=== PATIENT | female | born 1990 | race Caucasian/White ===

== ENCOUNTER 2017-01-22 13:25 | Emergency (ER) | payer MEDICAID, OTHER ==
[2017-01-22] MEDS ORDERED: Sodium Chloride 0.9% 10 ML Syringe FLUSH PRN (13:41)
[2017-01-22] MEDS ORDERED: Sodium Chloride 0.9% 2.5 ML Syringe FLUSH PRN (13:41)
--- NOTE | 2017-01-22 14:02 | EDM.PDOC ---
ED HPI GENERAL MEDICAL PROBLEM - General Chief Complaint: Abdominal Pain Stated Complaint: ABDOMINAL PAIN Time Seen by Provider: 01/22/17 13:30 - History of Present Illness INITIAL COMMENTS - FREE TEXT/NARRATIVE: HISTORY AND PHYSICAL: History of present illness: The patient is a 26 y/0 female with a history of a recent total abdominal hysterectomy performed 2 weeks ago at the [facility] for ovarian cancer and she is scheduled for chemotherapy in another 4 weeks in [place]. The patient states that she is on pain medication and has had intermittent abdominal pain since the surgery. The patient has not had vomiting but has been nauseated since the surgery and is using Zofran. She has not had a fever flank pain or urinary complaints. Patient says she is here today because she feels that the pain is worse and she is now feeling a lump in the midline in her incision which she did not notice before. She says the pain that is more sharp originates from this and then radiates outward. Review of systems: As per history of present illness and below otherwise all systems reviewed and negative. Past medical history: As per history of present illness and as reviewed below otherwise noncontributory. Surgical history: As per history of present illness and as reviewed below otherwise noncontributory. Social history: No reported history of drug or alcohol abuse. Family history: As per history of present illness and as reviewed below otherwise noncontributory. Physical exam: Gen.: Well-developed well-nourished female who is nontoxic and vital signs reviewed by me HEENT: Atraumatic, normocephalic, negative for conjunctival pallor or scleral icterus, mucous membranes moist, throat clear, neck supple, nontender, trachea midline. Lungs: Clear to auscultation, breath sounds equal bilaterally, chest nontender. Heart: S1S2, regular rate and rhythm no overt murmurs Abdomen: Soft, nondistended, nontender. Midline incision is well-healed and there is a palpable firm area approximately the size of an almond in the inferior aspect which has some tenderness but no fluctuance. There is no erythema in the surround and the bowel sounds are slightly hypoactive. There is no diffuse tenderness on palpation no rebound or guarding. Most of the tenderness that is appreciated on my exam is localized to this area in her scar tissue. Negative for masses or hepatosplenomegaly. Negative for costovertebral tenderness. Pelvis: Stable nontender. Genitourinary: Deferred. Rectal: Deferred. Extremities: Atraumatic, negative for cords or calf pain. Neurovascular unremarkable. Neuro: Awake, alert, oriented. Cranial nerves II through XII unremarkable. Cerebellum unremarkable. Motor and sensory unremarkable throughout. Exam nonfocal. Diagnostics: CBC CMP CT scan of the abdomen and pelvis Therapeutics: I will offer the patient Toradol--nursing said that she declined that. I discussed with the patient all testing care results and I will give her a disc of her CAT scan as she is scheduled to follow-up with her surgeon in one week. There is nothing concerning that needs emergent admission or surgical intervention. I've advised her to continue with her care Plan at home with pain management and to increase fluids and fiber in her diet. Advised on reasons to return. Impression: Incisional pain status post total abdominal hysterectomy Definitive disposition and diagnosis as appropriate pending reevaluation and review of above. Middle Abdominal Pain Score (Numeric/FACES): 7 - Related Data Allergies Allergy/AdvReac Type Severity Reaction Status Date / Time No Known Allergies Allergy Verified 01/22/17 13:29 Home Meds: Home Meds Acetaminophen [Tylenol] 01/22/17 [History] Docusate Sodium [Stool Softener] 01/22/17 [History] Ibuprofen 01/22/17 [History] Ondansetron [Zofran ODT] 01/22/17 [History] oxyCODONE HCl [Oxycontin] 1 tab PO ASDIRECTED PRN 01/22/17 [History] Past Medical History - Past Health History Medical/Surgical History: Denies Medical/Surgical History HEENT History: Reports: None Cardiovascular History: Reports: None Respiratory History: Reports: None Genitourinary History: Reports: None 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 (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 Below) Other OB/BYN History: ovarian tumor Psychiatric History: Reports: None Dermatologic History: Reports: None - Infectious Disease History Infectious Disease History: Reports: Chicken Pox - Past Surgical History HEENT Surgical History: Reports: None GI Surgical History: Reports: Appendectomy Female Surgical History: Reports: Hysterectomy, Oophorectomy Social & Family History - Family History Oncologic: Reports: Cervix, Ovarian, Other (See Below) Other Oncologic Family History: stomach - Tobacco Use Smoking Status *Q: Never Smoker Years of Tobacco use: 2 Second Hand Smoke Exposure: No - Alcohol Use Days Per Week of Alcohol Use: 1 Number of Drinks Per Day: 6 Total Drinks Per Week: 6 - Recreational Drug Use Recreational Drug Use: No ED ROS GENERAL - Review of Systems Review Of Systems: ROS reveals no pertinent complaints other than HPI. ED EXAM, GENERAL - Physical Exam Exam: See Below (See dictation) Course - Vital Signs Last Recorded V/S: Last Vital Signs Temp 36.3 C 01/22/17 13:29 Pulse 63 01/22/17 13:29 Resp 18 01/22/17 13:29 BP 115/71 01/22/17 13:29 Pulse Ox 98 01/22/17 13:29 - Orders/Labs/Meds Orders: Active Orders 24 hr Category Date Time Status Sodium Chloride 0.9% [Saline Flush] Med 01/22/17 13:41 Active 10 ml FLUSH ASDIRECTED PRN Sodium Chloride 0.9% [Saline Flush] Med 01/22/17 13:41 Active 2.5 ml FLUSH ASDIRECTED PRN Saline Lock Insert [OM.PC] Stat Oth 01/22/17 13:40 Ordered Medication Orders Sodium Chloride (Saline Flush) 10 ml FLUSH ASDIRECTED PRN PRN Reason: Keep Vein Open Last Admin: 01/22/17 13:56 Dose: 10 ml Sodium Chloride (Saline Flush) 2.5 ml FLUSH ASDIRECTED PRN PRN Reason: Keep Vein Open Last Admin: 01/22/17 13:56 Dose: 2.5 ml Labs: Laboratory Tests 01/22/17 01/22/17 Range/Units 13:54 13:54 WBC 7.73 (4.0-11.0) K/uL RBC 4.20 L (4.30-5.90) M/uL Hgb 12.5 (12.0-16.0) g/dL Hct 38.5 (36.0-46.0) % MCV 91.7 (80.0-98.0) fL MCH 29.8 (27.0-32.0) pg MCHC 32.5 (31.0-37.0) g/dL RDW Std Deviation 46.3 (28.0-62.0) fl RDW Coeff of Geovany 14 (11.0-15.0) % Plt Count 297 (150-400) K/uL MPV 9.30 (7.40-12.00) fL Neut % (Auto) 66.6 (48.0-80.0) % Lymph % (Auto) 23.3 (16.0-40.0) % [place] % (Auto) 6.6 (0.0-15.0) % Eos % (Auto) 3.2 (0.0-7.0) % Baso % (Auto) 0.3 (0.0-1.5) % Neut # (Auto) 5.2 (1.4-5.7) K/uL Lymph # (Auto) 1.8 (0.6-2.4) K/uL [place] # (Auto) 0.5 (0.0-0.8) K/uL Eos # (Auto) 0.3 (0.0-0.7) K/uL Baso # (Auto) 0.0 (0.0-0.1) K/uL Nucleated RBC % 0.0 /100WBC Nucleated RBCs # 0 K/uL Sodium 141 (136-146) mmol/L Potassium 3.6 (3.5-5.1) mmol/L Chloride 109 (98-110) mmol/L Carbon Dioxide 25 (21-31) mmol/L BUN 14 (6.0-23.0) mg/dL Creatinine 0.8 (0.6-1.5) mg/dL Est Cr Clr Drug Dosing 103.63 mL/min Estimated GFR (MDRD) > 60.0 ml/min Glucose 118 H (60-110) mg/dL Calcium 9.0 (8.8-10.8) mg/dL Total Bilirubin 0.3 (0.1-1.5) mg/dL AST 15 (5-40) IU/L ALT 18 (8-54) IU/L Alkaline Phosphatase 85 (40-150) Total Protein 6.8 (6.0-8.0) g/dL Albumin 3.7 (3.5-5.0) g/dL Globulin 3.1 (2.0-3.5) g/dL Albumin/Globulin Ratio 1.2 L (1.3-2.8) Meds: Medications Generic Name Dose Route Start Last Admin Trade Name Freq PRN Reason Stop Dose Admin Sodium Chloride 10 ml 01/22/17 13:41 01/22/17 13:56 Saline Flush FLUSH 10 ml ASDIRECTED PRN Administration Keep Vein Open Sodium Chloride 2.5 ml 01/22/17 13:41 01/22/17 13:56 Saline Flush FLUSH 2.5 ml ASDIRECTED PRN Administration Keep Vein Open Discontinued Medications Generic Name Dose Route Start Last Admin Trade Name Freq PRN Reason Stop Dose Admin Iopamidol 100 ml 01/22/17 15:00 01/22/17 15:03 Isovue Multipack-370 (76%) IVPUSH 01/22/17 15:01 100 ml ONETIME STA Administration Departure - Departure Time of Disposition: 15:41 Disposition: Home, Self-Care 01 Condition: Good Clinical Impression: Pain at surgical incision - Discharge Information Forms: ED Department Discharge Additional Instructions: The following information is given to patients seen in the emergency department who are being discharged to home. This information is to outline your options for follow-up care. We provide all patients seen in our emergency department with a follow-up referral. The need for follow-up, as well as the timing and circumstances, are variable depending upon the specifics of your emergency department visit. If you don't have a primary care physician on staff, we will provide you with a referral. We always advise you to contact your personal physician following an emergency department visit to inform them of the circumstance of the visit and for follow-up with them and/or the need for any referrals to a consulting specialist. The emergency department will also refer you to a specialist when appropriate. This referral assures that you have the opportunity for followup care with a specialist. All of these measure are taken in an effort to provide you with optimal care, which includes your followup. Under all circumstances we always encourage you to contact your private physician who remains a resource for coordinating your care. When calling for followup care, please make the office aware that this follow-up is from your recent emergency room visit. If for any reason you are refused follow-up, please contact the [facility] emergency department at and ask to speak to the emergency department charge nurse. [facility] Primary care- Internal Medicine and Family [address] [address] Please keep all your scheduled appointments especially along with her surgeon in one week. Bring the disc of your CAT scan performed today to that appointment. Use the pain medications you have at home for discomfort and return to ER as needed and as discussed - My Orders Last 24 Hours: My Active Orders 01/22/17 13:40 Saline Lock Insert [OM.PC] Stat 01/22/17 13:41 Sodium Chloride 0.9% [Saline Flush] 10 ml FLUSH ASDIRECTED PRN Sodium Chloride 0.9% [Saline Flush] 2.5 ml FLUSH ASDIRECTED PRN - Assessment/Plan Last 24 Hours: My Active Orders 01/22/17 13:40 Saline Lock Insert [OM.PC] Stat 01/22/17 13:41 Sodium Chloride 0.9% [Saline Flush] 10 ml FLUSH ASDIRECTED PRN Sodium Chloride 0.9% [Saline Flush] 2.5 ml FLUSH ASDIRECTED PRN
[2017-01-22 14:30] LABS: CHLORIDE,CL 109 mmol/L (98-110); SODIUM,NA 141 mmol/L (136-146)
[2017-01-22] MEDS ORDERED: Iopamidol 755 MG/ML 500 ML Multipack Bottle IVPUSH STA (15:00)
--- NOTE | 2017-01-22 15:16 | CT ---
CT of the abdomen and pelvis with contrast. HISTORY: Pain TECHNIQUE: Axial CT images were obtained of the abdomen and pelvis following administration of 100 m L of Isovue-370 in the right antecubital fossa without complication. Coronal and sagittal reconstruc tions obtained. FINDINGS: The lung bases are clear, no pleural effusion. There are healing posterior left T11 and T12 rib frac tures. There is mild focal fatty infiltration near the falciform ligament, otherwise the liver appears norm al. The spleen, adrenal glands, and pancreas appear normal. The gallbladder is minimally filled. No bulky retroperitoneal lymphadenopathy or abdominal ascites. The kidneys enhance and function symmetrically without evidence of obstructive uropathy. Small renal cortical cysts are noted bilaterally. The large and small bowel are normal in caliber without evidence of obstruction. Appendectomy. There is no bulky retroperitoneal lymphadenopathy. The urinary bladder is normal. There is a small 2.4 x 1.4 x 2 cm collection within the pelvis just adjacent to the vaginal cuff. Likely post surgical nolasco ges secondary to recent hysterectomy. No free air noted. Urinary bladder appears normal. Postsurgical changes are noted secondary to a midline laparotomy incision. There is no definite jasmina ia demonstrated. There is mild adjacent stranding. There is a small 1.2 x 0.8 cm collection within t he lower aspect of the incision. No suspicious osseous abnormalities identified. IMPRESSION: 1. Postsurgical changes noted secondary to recent hysterectomy and laparotomy. There is a tiny 1.2 c m collection along the inferior aspect of the incision margin. There is also a 2.4 x 1.4 cm intrapel odalys collection near the vaginal cuff. There is no increased adjacent stranding to suggest an abscess , this is likely a small postoperative hematoma versus seroma. 2. No abdominal hernia identified. 3. Healing subacute posterior left 11th and 12th rib fractures.
[2017-01-22 15:57] VITALS: BP 109/52
== END 2017-01-22 16:00 | disposition home or self-care (01) ==
LOC: MW.ED 13:25
DX: G89.18 Other acute postprocedural pain (principal); R10.9 Unspecified abdominal pain; Z90.49 Acquired absence of other specified parts of digestive tract; Z90.710 Acquired absence of both cervix and uterus
CPT/HCPCS: 36415; 74177; 80053; 85025; 99284; Q9967; 99283

== ENCOUNTER 2017-02-06 10:26 | Emergency (ER) | payer BC, MEDICAID, OTHER ==
[2017-02-06] MEDS ORDERED: Sodium Chloride 0.9% 1,000 ML IV ONE (10:53)
[2017-02-06] MEDS ORDERED: Sodium Chloride 0.9% 10 ML Syringe FLUSH PRN (10:53)
[2017-02-06] MEDS ORDERED: Sodium Chloride 0.9% 2.5 ML Syringe FLUSH PRN (10:53)
[2017-02-06] MEDS ORDERED: Ondansetron 4 MG/2 ML SDV IVPUSH ONE (10:53)
[2017-02-06] MEDS ORDERED: Morphine 10 MG/ML Syringe IV ONE (11:15)
[2017-02-06] MEDS ORDERED: Morphine 2 MG/ML Syringe IVPUSH ONE (11:30)
--- NOTE | 2017-02-06 11:34 | EDM.PDOC ---
<Wan Wiggins - Last Filed: 02/06/17 12:27> ED HPI GENERAL MEDICAL PROBLEM - General Chief Complaint: General Stated Complaint: PT WOULD LIKE TO BE SEEN Time Seen by Provider: 02/06/17 10:27 - History of Present Illness INITIAL COMMENTS - FREE TEXT/NARRATIVE: Seen and examined the patient Patient did present for IV fluids at the request of her surgeon in [facility]. She has a history of ovarian cancer as stated diagnosed 3-4 months prior she has since had surgery and myomectomy with for the primary procedure and is subsequently followed and male. She has follow-up scheduled with both providers daniel bran coming up in 10-14 days. I agree with physical exam Skin/abdominal exam surgical wound is clean dry and intact is a small area where she did have drainage performed last week this has packing in place she is tender surrounding however no redness warmth or exudate for drainage There is no pain on deep palpation right and left lower quadrant bowel sounds are present throughout no guarding or rebound although as stated there is moderate tenderness surrounding the drainage site this is superficial CT of the abdomen pelvis was performed last week and results are on electronic file Assessment Ovarian cancer Multiple debulking procedures performed [facility], primary procedure at [place] Wound is clean dry intact Plan 1 L normal saline bolus provided Medications provided by resident above Follow-up with primary surgeon in [place] as scheduled sooner as needed Continue follow-up with male clinics as scheduled as well Return if symptoms persist or worsen - Related Data Allergies Allergy/AdvReac Type Severity Reaction Status Date / Time No Known Allergies Allergy Verified 01/22/17 13:29 Home Meds: Home Meds Acetaminophen [Tylenol] 01/22/17 [History] Docusate Sodium [Stool Softener] 01/22/17 [History] Ibuprofen 01/22/17 [History] Ondansetron [Zofran ODT] 01/22/17 [History] oxyCODONE HCl [Oxycontin] 1 tab PO ASDIRECTED PRN 01/22/17 [History] ED ROS GENERAL - Review of Systems Review Of Systems: ROS reveals no pertinent complaints other than HPI. ED EXAM, GENERAL - Physical Exam Exam: See Below Course - Vital Signs Last Recorded V/S: Last Vital Signs Temp 36.8 C 02/06/17 10:51 Pulse 69 02/06/17 13:17 Resp 16 02/06/17 13:17 BP 103/66 02/06/17 13:17 Pulse Ox 100 02/06/17 13:17 - Orders/Labs/Meds Labs: Laboratory Tests 02/06/17 02/06/17 02/06/17 Range/Units 11:02 11:02 11:02 WBC 6.53 (4.0-11.0) K/uL RBC 4.40 (4.30-5.90) M/uL Hgb 13.3 (12.0-16.0) g/dL Hct 40.1 (36.0-46.0) % MCV 91.1 (80.0-98.0) fL MCH 30.2 (27.0-32.0) pg MCHC 33.2 (31.0-37.0) g/dL RDW Std Deviation 45.6 (28.0-62.0) fl RDW Coeff of Geovany 14 (11.0-15.0) % Plt Count 294 (150-400) K/uL MPV 9.60 (7.40-12.00) fL Neut % (Auto) 50.9 (48.0-80.0) % Lymph % (Auto) 35.2 (16.0-40.0) % [place] % (Auto) 10.4 (0.0-15.0) % Eos % (Auto) 3.2 (0.0-7.0) % Baso % (Auto) 0.3 (0.0-1.5) % Neut # (Auto) 3.3 (1.4-5.7) K/uL Lymph # (Auto) 2.3 (0.6-2.4) K/uL [place] # (Auto) 0.7 (0.0-0.8) K/uL Eos # (Auto) 0.2 (0.0-0.7) K/uL Baso # (Auto) 0.0 (0.0-0.1) K/uL Nucleated RBC % 0.0 /100WBC Nucleated RBCs # 0 K/uL Lactate 0.9 (0.20-2.00) mmol/L Sodium 139 (136-146) mmol/L Potassium 4.1 (3.5-5.1) mmol/L Chloride 107 (98-110) mmol/L Carbon Dioxide 23 (21-31) mmol/L BUN 13 (6.0-23.0) mg/dL Creatinine 0.8 (0.6-1.5) mg/dL Est Cr Clr Drug Dosing 103.63 mL/min Estimated GFR (MDRD) > 60.0 ml/min Glucose 86 (60-110) mg/dL Calcium 9.4 (8.8-10.8) mg/dL Total Bilirubin 0.3 (0.1-1.5) mg/dL AST 19 (5-40) IU/L ALT 19 (8-54) IU/L Alkaline Phosphatase 77 (40-150) Total Protein 7.2 (6.0-8.0) g/dL Albumin 3.9 (3.5-5.0) g/dL Globulin 3.3 (2.0-3.5) g/dL Albumin/Globulin Ratio 1.2 L (1.3-2.8) Urine Color Urine Appearance Urine pH (5.0-8.0) Ur Specific [place] (1.001-1.035) Urine Protein (NEGATIVE) mg/dL Urine Glucose (UA) (NEGATIVE) mg/dL Urine Ketones (NEGATIVE) mg/dL Urine Occult Blood (NEGATIVE) Urine Nitrite (NEGATIVE) Urine Bilirubin (NEGATIVE) Urine Urobilinogen (<2.0) EU/dL Ur Leukocyte Esterase (NEGATIVE) Urine RBC (0-2/HPF) Urine WBC (0-5/HPF) Ur Epithelial Cells (NONE-FEW) Amorphous Sediment (NEGATIVE) Urine Bacteria (NEGATIVE) 02/06/17 Range/Units 12:30 WBC (4.0-11.0) K/uL RBC (4.30-5.90) M/uL Hgb (12.0-16.0) g/dL Hct (36.0-46.0) % MCV (80.0-98.0) fL MCH (27.0-32.0) pg MCHC (31.0-37.0) g/dL RDW Std Deviation (28.0-62.0) fl RDW Coeff of Geovany (11.0-15.0) % Plt Count (150-400) K/uL MPV (7.40-12.00) fL Neut % (Auto) (48.0-80.0) % Lymph % (Auto) (16.0-40.0) % [place] % (Auto) (0.0-15.0) % Eos % (Auto) (0.0-7.0) % Baso % (Auto) (0.0-1.5) % Neut # (Auto) (1.4-5.7) K/uL Lymph # (Auto) (0.6-2.4) K/uL [place] # (Auto) (0.0-0.8) K/uL Eos # (Auto) (0.0-0.7) K/uL Baso # (Auto) (0.0-0.1) K/uL Nucleated RBC % /100WBC Nucleated RBCs # K/uL Lactate (0.20-2.00) mmol/L Sodium (136-146) mmol/L Potassium (3.5-5.1) mmol/L Chloride (98-110) mmol/L Carbon Dioxide (21-31) mmol/L BUN (6.0-23.0) mg/dL Creatinine (0.6-1.5) mg/dL Est Cr Clr Drug Dosing mL/min Estimated GFR (MDRD) ml/min Glucose (60-110) mg/dL Calcium (8.8-10.8) mg/dL Total Bilirubin (0.1-1.5) mg/dL AST (5-40) IU/L ALT (8-54) IU/L Alkaline Phosphatase (40-150) Total Protein (6.0-8.0) g/dL Albumin (3.5-5.0) g/dL Globulin (2.0-3.5) g/dL Albumin/Globulin Ratio (1.3-2.8) Urine Color YELLOW Urine Appearance SLT CLOUDY Urine pH 6.0 (5.0-8.0) Ur Specific [place] 1.015 (1.001-1.035) Urine Protein NEGATIVE (NEGATIVE) mg/dL Urine Glucose (UA) NEGATIVE (NEGATIVE) mg/dL Urine Ketones NEGATIVE (NEGATIVE) mg/dL Urine Occult Blood LARGE H (NEGATIVE) Urine Nitrite NEGATIVE (NEGATIVE) Urine Bilirubin NEGATIVE (NEGATIVE) Urine Urobilinogen 0.2 (<2.0) EU/dL Ur Leukocyte Esterase SMALL (NEGATIVE) Urine RBC 50-70 (0-2/HPF) Urine WBC 12-15 (0-5/HPF) Ur Epithelial Cells FEW (NONE-FEW) Amorphous Sediment RARE (NEGATIVE) Urine Bacteria FEW (NEGATIVE) Meds: Medications Discontinued Medications Generic Name Dose Route Start Last Admin Trade Name Jose Angel PRN Reason Stop Dose Admin Sodium Chloride 1,000 mls @ 999 mls/hr 02/06/17 10:53 02/06/17 11:09 Normal Saline IV 02/06/17 11:53 999 mls/hr STAT ONE Administration Morphine Sulfate 2 mg 02/06/17 11:15 02/06/17 11:39 Morphine IV 02/06/17 11:16 Not Given ONETIME ONE Morphine Sulfate 2 mg 02/06/17 11:30 02/06/17 11:39 Morphine IVPUSH 02/06/17 11:31 2 mg ONETIME ONE Administration Ondansetron HCl 4 mg 02/06/17 10:53 02/06/17 11:11 Zofran IVPUSH 02/06/17 10:54 4 mg ONETIME ONE Administration Sodium Chloride 10 ml 02/06/17 10:53 Saline Flush FLUSH ASDIRECTED PRN Keep Vein Open Sodium Chloride 2.5 ml 02/06/17 10:53 Saline Flush FLUSH ASDIRECTED PRN Keep Vein Open Departure - Departure Time of Disposition: 12:31 Disposition: Home, Self-Care 01 Condition: Good Clinical Impression: Visit for wound check Clinical Impression: (Ruled Out): Wound check, abscess - Discharge Information Instructions: Dehydration, Adult, [id number] Referrals: PCP,None [Primary Care Provider] - Forms: ED Department Discharge Additional Instructions: Continue current medications as prescribed Return if fever chills sweats should they develop [facility] as needed Continue follow-up with male clinics as scheduled as well Return if symptoms persist or worsen <Cb Saba - Last Filed: 02/09/17 09:15> ED HPI GENERAL MEDICAL PROBLEM - General Source of Information: Reports: Patient History Limitations: Reports: No Limitations - History of Present Illness INITIAL COMMENTS - FREE TEXT/NARRATIVE: HISTORY AND PHYSICAL: History of present illness: This is a 26-year-old female with a past history of ovarian cancer status post total abdominal hysterectomy who presents with a chief complaint of abdominal pain. She presented to our emergency department on January 23 with a similar complaint where a CT scan and workup was done and a diagnosis of postsurgical pain was made. The patient tells me that she began to form an abscess over the surgical site and she followed up with her surgeon at [place] who did incision and drainage last week. She tells me that her abdominal pain continues to be persistent in the same location. She also tells me she is experiencing, chills and nausea. She denies any chest pain, shortness of breath. Review of systems: As per history of present illness and below otherwise all systems reviewed and negative. Past medical history: As per history of present illness and as reviewed below otherwise noncontributory. Surgical history: As per history of present illness and as reviewed below otherwise noncontributory. Social history: No reported history of drug or alcohol abuse. Family history: As per history of present illness and as reviewed below otherwise noncontributory. Physical exam: HEENT: Atraumatic, normocephalic, pupils reactive, negative for conjunctival pallor or scleral icterus, mucous membranes moist, throat clear, neck supple, nontender, trachea midline. Lungs: Clear to auscultation, breath sounds equal bilaterally, chest nontender. Heart: S1S2, regular, negative for clicks, rubs, or JVD. Abdomen: Soft, nondistended, nontender. Negative for masses or hepatosplenomegaly. Negative for costovertebral tenderness. Postsurgical scar appears to be clean with no superficial signs of infection. Incision and drainage is currently packed with gauze. There does not appear to be any excessive drainage from the site. There is tenderness to palpation over the surgical scar. Pelvis: Stable nontender. Genitourinary: Deferred. Rectal: Deferred. Extremities: Atraumatic, negative for cords or calf pain. Neurovascular unremarkable. Neuro: Awake, alert, oriented. Cranial nerves II through XII unremarkable. Cerebellum unremarkable. Motor and sensory unremarkable throughout. Exam nonfocal. Diagnostics: CBC CMP and UA blood culture lactic acid Therapeutics: IV normal saline bolus, 4 mg IV Zofran, 2 mg IV morphine Impression: [] Plan: [] Definitive disposition and diagnosis as appropriate pending reevaluation and review of above. 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) Other OB/BYN History: ovarian tumor Psychiatric History: Reports: None Dermatologic History: Reports: None - Infectious Disease History Infectious Disease History: Reports: Chicken Pox - Past Surgical History HEENT Surgical History: Reports: None GI Surgical History: Reports: Appendectomy Female Surgical History: Reports: Hysterectomy, Oophorectomy Social & Family History - Family History Oncologic: Reports: Cervix, Ovarian, Other (See Below) Other Oncologic Family History: stomach - Tobacco Use Smoking Status *Q: Never Smoker Years of Tobacco use: 2 Second Hand Smoke Exposure: No - Alcohol Use Days Per Week of Alcohol Use: 1 Number of Drinks Per Day: 6 Total Drinks Per Week: 6 - Recreational Drug Use Recreational Drug Use: No ED ROS GENERAL - Review of Systems Review Of Systems: See Below (see dictation) ED EXAM, GENERAL - Physical Exam Exam: See Below (see dictation) Departure - Departure Condition: Good
[2017-02-06 12:30] LABS: CHLORIDE,CL 107 mmol/L (98-110); SODIUM,NA 139 mmol/L (136-146)
[2017-02-06 13:23] VITALS: BP 103/66
== END 2017-02-06 13:17 | disposition home or self-care (01) ==
LOC: MW.ED 10:26
DX: Z48.816 Encounter for surgical aftercare following surgery on the genitourinary system (principal); Z85.43 Personal history of malignant neoplasm of ovary; Z90.49 Acquired absence of other specified parts of digestive tract; Z90.710 Acquired absence of both cervix and uterus; Z90.721 Acquired absence of ovaries, unilateral
CPT/HCPCS: 36415; 80053; 81001; 83605; 85025; 87040; 96361; 96374; 96375; 99284; J2270; J2405; J7040; 99282

== ENCOUNTER 2017-02-27 08:17 | Emergency (ER) | payer MEDICAID, OTHER ==
--- NOTE | 2017-02-27 08:38 | EDM.PDOC ---
ED HPI GENERAL MEDICAL PROBLEM - General Chief Complaint: Abdominal Pain Stated Complaint: ABDOMINAL PAIN Time Seen by Provider: 02/27/17 08:32 - History of Present Illness INITIAL COMMENTS - FREE TEXT/NARRATIVE: HISTORY AND PHYSICAL: History of present illness: The patient is a 27-year-old female with a history of ovarian cancer who initially underwent surgery at [facility] in [place] and then had several surgeries subsequently at [facility]; she has been seen in this emergency department 2 prior times on January 22 and February 06 with the first of these visits by me where she was complaining of incisional pain and had just had a surgery 2 weeks prior at [facility]. At that visit the patient had tenderness and discomfort in her incision and a CAT scan was performed which revealed a small fluid collection in this area [facility]. She was advised to follow-up with her surgeon at [place] which she did and he performed an incision and drainage subsequently and the patient was seen on February 06 after that procedure urine R ER. On that visit she was concerned about the wound and wanted a recheck. On my initial visit with her the beginning of January she was posted begin chemotherapy in [place]. She says that she never started chemotherapy in [place] and she has had no chemotherapy at this point. She identifies with Dr. Rizo, a surgeon at [facility], as her primary physician and I asked her about the oncologist contacted me contacted and she says that she has not started working with him. She seems To be very indifferent about follow-up and her care and when asked about following up at the [facility] he says that she is only going to be going there if she needs to have more surgery. The patient agrees with me that she has had this same pelvic pain since her surgery and there is nothing new or different about it and she says that over the last few weeks she has stopped taking her pain medication because it constipates her and she is trying to "deal with the pain" without the medications. She tells me that today the pain is still there and it is not different or changed but she has had some nausea some vomiting and is not having diarrhea and is in fact having harder stools. She's taking stool softeners to try to help with that. She has no urinary complaints no flank pain no chest pain or shortness of breath and says that she may have had a fever several days ago is currently not having a fever. Obtaining history or straight answers from this patient is somewhat challenging as she does not elaborate much on the questions and only simply answers. She feels that her incision is still somewhat heaped up and she says that when she moves certain ways she feels like it is ripping. When she was triaged she told the nurse initially that she was specifically here for a CAT scan.: Well-developed well-nourished female who is nontoxic and vital signs of been reviewed by me. She moves easily in the ED without any distress. Dr Means at [facility] is Dr Gaona but goes by the shorter name Please note that I was contacted yesterday by the oncologist, Dr. Means, at [facility] and [place] as this patient had contacted him and was concerned about her abdominal pain. He told me that she has not completely connected with them for treatment and she has not started treatment with them and he told her that if he was having pain that she should be seen in the emergency department for testing and imaging as indicated. Review of systems: As per history of present illness and below otherwise all systems reviewed and negative. Past medical history: As per history of present illness and as reviewed below otherwise noncontributory. Surgical history: As per history of present illness and as reviewed below otherwise noncontributory. Social history: No reported history of drug or alcohol abuse. Family history: As per history of present illness and as reviewed below otherwise noncontributory. Physical exam: HEENT: Atraumatic, normocephalic, pupils reactive, negative for conjunctival pallor or scleral icterus, mucous membranes moist, throat clear, neck supple, nontender, trachea midline. Lungs: Clear to auscultation, breath sounds equal bilaterally, chest nontender. Heart: S1S2, regular rate and rhythm no overt murmurs Abdomen: Soft, nondistended, nontender On deep palpation throughout the abdomen.she has a well-healed midline incision without any evidence of any hernial defects but there is some heaping up of the tissue in the inferior aspect which causes her some discomfort but there is no fluctuance. Negative for masses or hepatosplenomegaly. Negative for costovertebral tenderness. Pelvis: Stable nontender. Genitourinary: Deferred. Rectal: Deferred. Extremities: Atraumatic, negative for cords or calf pain. Neurovascular unremarkable. Neuro: Awake, alert, oriented. Cranial nerves II through XII unremarkable. Cerebellum unremarkable. Motor and sensory unremarkable throughout. Exam nonfocal. Diagnostics: CBC CMP lactic acid UA CT scan of the abdomen and pelvis Therapeutics: Toradol Zofran I discussed the CT scan and lab findings with the oncologist at [place], Dr. Gaona; I will push the CT films to their institution so that he can review them. He said that he will discuss this case with Dr. Stover as well. He said that the recommendation from [facility] was no chemotherapy at this time and just close follow-up. I've explained this to the patient.. I will offer a prescription of tramadol which might be less constipating for the patient and advise her that Dr. Means's office will be calling her about follow-up Impression: Abdominal pain etiology unclear with history of ovarian cancer with resection stable Definitive disposition and diagnosis as appropriate pending reevaluation and review of above. Pelvic Pain Score (Numeric/FACES): 7 - Related Data Allergies Allergy/AdvReac Type Severity Reaction Status Date / Time No Known Allergies Allergy Verified 01/22/17 13:29 Home Meds: Home Meds Acetaminophen [Tylenol] 01/22/17 [History] Docusate Sodium [Stool Softener] 01/22/17 [History] Ibuprofen 01/22/17 [History] Ondansetron [Zofran ODT] 01/22/17 [History] oxyCODONE HCl [Oxycontin] 1 tab PO ASDIRECTED PRN 01/22/17 [History] Past Medical History - Past Health History Medical/Surgical History: Denies Medical/Surgical History HEENT History: Reports: None Cardiovascular History: Reports: None Respiratory History: Reports: None Genitourinary History: Reports: None SUPERINTENDENT TRANSMISSION History: Reports: Other (See Below) Other OB/BYN History: ovarian tumor Psychiatric History: Reports: None Dermatologic History: Reports: None - Infectious Disease History Infectious Disease History: Reports: Chicken Pox - Past Surgical History HEENT Surgical History: Reports: None GI Surgical History: Reports: Appendectomy Female Surgical History: Reports: Hysterectomy, Oophorectomy Social & Family History - Family History Family Medical History: Noncontributory Oncologic: Reports: Cervix, Ovarian, Other (See Below) Other Oncologic Family History: stomach - Tobacco Use Smoking Status *Q: Never Smoker Years of Tobacco use: 2 Second Hand Smoke Exposure: No - Caffeine Use Caffeine Use: Reports: None - Alcohol Use Days Per Week of Alcohol Use: 1 Number of Drinks Per Day: 6 Total Drinks Per Week: 6 - Recreational Drug Use Recreational Drug Use: No ED ROS GENERAL - Review of Systems Review Of Systems: ROS reveals no pertinent complaints other than HPI. ED EXAM, GENERAL - Physical Exam Exam: See Below (See dictation) Course - Vital Signs Last Recorded V/S: Last Vital Signs Temp 36.4 C 02/27/17 08:30 Pulse 51 L 02/27/17 08:30 Resp 18 02/27/17 08:30 BP 114/72 02/27/17 08:30 Pulse Ox 100 02/27/17 08:30 - Orders/Labs/Meds Orders: Active Orders 24 hr Category Date Time Status UA W/MICROSCOPIC [URIN] Stat Lab 02/27/17 08:47 Ordered Sodium Chloride 0.9% [Saline Flush] Med 02/27/17 08:47 Active 10 ml FLUSH ASDIRECTED PRN Sodium Chloride 0.9% [Saline Flush] Med 02/27/17 08:47 Active 2.5 ml FLUSH ASDIRECTED PRN Saline Lock Insert [OM.PC] Stat Oth 02/27/17 08:47 Ordered Medication Orders Sodium Chloride (Saline Flush) 10 ml FLUSH ASDIRECTED PRN PRN Reason: Keep Vein Open Last Admin: 02/27/17 09:06 Dose: 10 ml Sodium Chloride (Saline Flush) 2.5 ml FLUSH ASDIRECTED PRN PRN Reason: Keep Vein Open Last Admin: 02/27/17 09:06 Dose: 2.5 ml Labs: Laboratory Tests 02/27/17 02/27/17 02/27/17 Range/Units 08:58 08:58 08:58 WBC 7.26 (4.0-11.0) K/uL RBC 4.44 (4.30-5.90) M/uL Hgb 13.5 (12.0-16.0) g/dL Hct 40.6 (36.0-46.0) % MCV 91.4 (80.0-98.0) fL MCH 30.4 (27.0-32.0) pg MCHC 33.3 (31.0-37.0) g/dL RDW Std Deviation 44.9 (28.0-62.0) fl RDW Coeff of Geovany 14 (11.0-15.0) % Plt Count 285 (150-400) K/uL MPV 9.30 (7.40-12.00) fL Neut % (Auto) 61.1 (48.0-80.0) % Lymph % (Auto) 28.4 (16.0-40.0) % Mcdonald % (Auto) 8.0 (0.0-15.0) % Eos % (Auto) 1.8 (0.0-7.0) % Baso % (Auto) 0.7 (0.0-1.5) % Neut # (Auto) 4.4 (1.4-5.7) K/uL Lymph # (Auto) 2.1 (0.6-2.4) K/uL Mcdonald # (Auto) 0.6 (0.0-0.8) K/uL Eos # (Auto) 0.1 (0.0-0.7) K/uL Baso # (Auto) 0.1 (0.0-0.1) K/uL Nucleated RBC % 0.0 /100WBC Nucleated RBCs # 0 K/uL Lactate 0.8 (0.20-2.00) mmol/L Sodium 139 (136-146) mmol/L Potassium 3.8 (3.5-5.1) mmol/L Chloride 110 (98-110) mmol/L Carbon Dioxide 23 (21-31) mmol/L BUN 10 (6.0-23.0) mg/dL Creatinine 0.8 (0.6-1.5) mg/dL Est Cr Clr Drug Dosing 102.72 mL/min Estimated GFR (MDRD) > 60.0 ml/min Glucose 107 (60-110) mg/dL Calcium 8.7 L (8.8-10.8) mg/dL Total Bilirubin 0.4 (0.1-1.5) mg/dL AST 16 (5-40) IU/L ALT 19 (8-54) IU/L Alkaline Phosphatase 69 (40-150) Total Protein 6.7 (6.0-8.0) g/dL Albumin 3.8 (3.5-5.0) g/dL Globulin 2.9 (2.0-3.5) g/dL Albumin/Globulin Ratio 1.3 (1.3-2.8) Meds: Medications Generic Name Dose Route Start Last Admin Trade Name Jose Angel PRN Reason Stop Dose Admin Sodium Chloride 10 ml 02/27/17 08:47 02/27/17 09:06 Saline Flush FLUSH 10 ml ASDIRECTED PRN Administration Keep Vein Open Sodium Chloride 2.5 ml 02/27/17 08:47 02/27/17 09:06 Saline Flush FLUSH 2.5 ml ASDIRECTED PRN Administration Keep Vein Open Discontinued Medications Generic Name Dose Route Start Last Admin Trade Name Andreaq PRN Reason Stop Dose Admin Iopamidol 100 ml 02/27/17 09:49 02/27/17 09:50 Isovue Multipack-370 (76%) IVPUSH 02/27/17 09:50 100 ml ONETIME STA Administration Ketorolac Tromethamine 30 mg 02/27/17 08:47 02/27/17 09:05 Toradol IVPUSH 02/27/17 08:48 30 mg ONETIME ONE Administration Ondansetron HCl 4 mg 02/27/17 08:47 02/27/17 09:05 Zofran IVPUSH 02/27/17 08:48 4 mg ONETIME ONE Administration Departure - Departure Time of Disposition: 10:37 Disposition: Home, Self-Care 01 Condition: Good Clinical Impression: Abdominal pain Qualifiers: Abdominal location: lower abdomen, unspecified Qualified Code(s): R10.30 - Lower abdominal pain, unspecified - Discharge Information Referrals: PCP,None [Primary Care Provider] - Forms: ED Department Discharge Additional Instructions: The following information is given to patients seen in the emergency department who are being discharged to home. This information is to outline your options for follow-up care. We provide all patients seen in our emergency department with a follow-up referral. The need for follow-up, as well as the timing and circumstances, are variable depending upon the specifics of your emergency department visit. If you don't have a primary care physician on staff, we will provide you with a referral. We always advise you to contact your personal physician following an emergency department visit to inform them of the circumstance of the visit and for follow-up with them and/or the need for any referrals to a consulting specialist. The emergency department will also refer you to a specialist when appropriate. This referral assures that you have the opportunity for followup care with a specialist. All of these measure are taken in an effort to provide you with optimal care, which includes your followup. Under all circumstances we always encourage you to contact your private physician who remains a resource for coordinating your care. When calling for followup care, please make the office aware that this follow-up is from your recent emergency room visit. If for any reason you are refused follow-up, please contact the [facility] emergency department at and ask to speak to the emergency department charge nurse. [facility] Primary care- Internal [place] [address] Please contact your oncologist at [facility], Dr. Means for further follow-up and try using the new prescription for tramadol to help with the pain as it might be less constipating. Please start [id number] MiraLAX daily to help with the constipation and push hydration. Return to ER as needed and as discussed - My Orders Last 24 Hours: My Active Orders 02/27/17 08:47 UA W/MICROSCOPIC [URIN] Stat Sodium Chloride 0.9% [Saline Flush] 10 ml FLUSH ASDIRECTED PRN Sodium Chloride 0.9% [Saline Flush] 2.5 ml FLUSH ASDIRECTED PRN Saline Lock Insert [OM.PC] Stat - Assessment/Plan Last 24 Hours: My Active Orders 02/27/17 08:47 UA W/MICROSCOPIC [URIN] Stat Sodium Chloride 0.9% [Saline Flush] 10 ml FLUSH ASDIRECTED PRN Sodium Chloride 0.9% [Saline Flush] 2.5 ml FLUSH ASDIRECTED PRN Saline Lock Insert [OM.PC] Stat
[2017-02-27] MEDS ORDERED: Ondansetron 4 MG/2 ML SDV IVPUSH ONE (08:47)
[2017-02-27] MEDS ORDERED: Ketorolac 30 MG/ML SDV IVPUSH ONE (08:47)
[2017-02-27] MEDS ORDERED: Sodium Chloride 0.9% 10 ML Syringe FLUSH PRN (08:47)
[2017-02-27] MEDS ORDERED: Sodium Chloride 0.9% 2.5 ML Syringe FLUSH PRN (08:47)
[2017-02-27 09:37] LABS: CHLORIDE,CL 110 mmol/L (98-110); SODIUM,NA 139 mmol/L (136-146)
[2017-02-27] MEDS ORDERED: Iopamidol 755 MG/ML 500 ML Multipack Bottle IVPUSH STA (09:49)
--- NOTE | 2017-02-27 10:20 | CT ---
CT of the abdomen and pelvis with contrast. HISTORY: Pain TECHNIQUE: Axial CT images were obtained of the abdomen and pelvis following administration of 100 mL of Isovue-370 in the right anterior fossa without complication. Coronal and sagittal reconstructions obtained. FINDINGS: The lung bases are clear, no pleural effusion. Mild focal fatty infiltration near the falciform ligament. The spleen, adrenal glands, and pancreas a ppear normal. The gallbladder is unremarkable. There is no bulky retroperitoneal lymphadenopathy or a bdominal ascites. The kidneys enhance and function symmetrically without evidence of obstructive uropathy. The large and small bowel are normal in caliber without evidence of obstruction. No focal pericolonic inflammation or stranding. No organized fluid collection noted within the pelvis. The appendix is no t visualized. The urinary bladder appears normal. No pelvic lymphadenopathy. No suspicious osseous abnormalities identified. Healing left-sided rib fractures noted. IMPRESSION: 1. No acute findings demonstrated within the abdomen or pelvis. 2. Postsurgical changes noted secondary to hysterectomy with midline laparotomy changes.
[2017-02-27 11:04] VITALS: BP 105/69
== END 2017-02-27 11:02 | disposition home or self-care (01) ==
LOC: MW.ED 08:17
DX: R10.30 Lower abdominal pain, unspecified (principal); Z85.43 Personal history of malignant neoplasm of ovary; Z90.710 Acquired absence of both cervix and uterus; Z90.49 Acquired absence of other specified parts of digestive tract
CPT/HCPCS: 36415; 74177; 80053; 81001; 83605; 85025; 96374; 96375; 99284; J1885; J2405; Q9967; 99283

== ENCOUNTER 2019-06-12 13:29 | Emergency (ER) | payer OTHER, SELFPAY ==
--- NOTE | 2019-06-12 13:58 | EDM.PDOC ---
ED HPI GENERAL MEDICAL PROBLEM - General Chief Complaint: Skin Complaint Stated Complaint: lump on arm Time Seen by Provider: 06/12/19 13:53 Source of Information: Reports: Patient History Limitations: Reports: No Limitations - History of Present Illness Duration: Week(s): (1), Getting Worse Location: Reports: Lower Extremity, Left Quality: Reports: Ache, Dull Severity: Mild Improves with: Reports: Heat Therapy Worsens with: Reports: None Associated Symptoms: Reports: No Other Symptoms left ac Pain Score (Numeric/FACES): 8 - Related Data Allergies Allergy/AdvReac Type Severity Reaction Status Date / Time No Known Allergies Allergy Verified 04/17/18 13:12 Home Meds: Home Meds oxyCODONE 5 mg PO DAILY 04/17/18 [History] traMADol [Ultram] 50 mg PO DAILY 04/17/18 [History] Past Medical History - Past Health History Medical/Surgical History: Denies Medical/Surgical History HEENT History: Reports: None Cardiovascular History: Reports: None Respiratory History: Reports: None Gastrointestinal History: Reports: None Genitourinary History: Reports: None PENSION ADVISER History: Reports: Other (See Below) Other PENSION ADVISER History: ovarian tumor Musculoskeletal History: Reports: None Neurological History: Reports: None Psychiatric History: Reports: None Endocrine/Metabolic History: Reports: None Hematologic History: Reports: None Immunologic History: Reports: None Oncologic (Cancer) History: Reports: Colon, Ovarian, Other (See Below) Other Oncologic History: "stomach" Dermatologic History: Reports: None - Infectious Disease History Infectious Disease History: Reports: Chicken Pox - Past Surgical History Head Surgeries/Procedures: Reports: None HEENT Surgical History: Reports: None Cardiovascular Surgical History: Reports: None Respiratory Surgical History: Reports: None GI Surgical History: Reports: Appendectomy, Other (See Below) Other GI Surgeries/Procedures: "lumps in stomach that are cancerous" Female Surgical History: Reports: Hysterectomy, Oophorectomy Other Female Surgeries/Procedures: ovarian cancer Endocrine Surgical History: Reports: None Neurological Surgical History: Reports: None Musculoskeletal Surgical History: Reports: None Oncologic Surgical History: Reports: None Dermatological Surgical History: Reports: None Social & Family History - Family History Family Medical History: Noncontributory Oncologic: Reports: Cervix, Ovarian, Other (See Below) Other Oncologic Family History: stomach - Tobacco Use Smoking Status *Q: Never Smoker - Caffeine Use Caffeine Use: Reports: Coffee - Recreational Drug Use Recreational Drug Use: No ED ROS GENERAL - Review of Systems Review Of Systems: See Below Constitutional: Reports: No Symptoms. Denies: Fever, Chills Respiratory: Reports: No Symptoms Cardiovascular: Reports: No Symptoms GI/Abdominal: Reports: No Symptoms : Reports: No Symptoms Musculoskeletal: Reports: Arm Pain Skin: Reports: Erythema, Other (Clinical findings consistent with small abscess in left antecubital area.) Neurological: Reports: No Symptoms Psychiatric: Reports: No Symptoms ED EXAM, SKIN/RASH Exam: See Below Exam Limited By: No Limitations General Appearance: Alert, No Apparent Distress Head: Atraumatic, Normocephalic Neck: Normal Inspection Respiratory/Chest: No Respiratory Distress Cardiovascular: No JVD Extremities: Arm Pain, Redness, Other (Findings consistent with small abscess left antecubital area consistent with IV drug abuse.) Course - Vital Signs Last Recorded V/S: Last Vital Signs Temp 35.8 C 06/12/19 13:37 Pulse 73 06/12/19 13:37 Resp 16 06/12/19 13:37 BP 107/74 06/12/19 13:37 Pulse Ox 97 06/12/19 13:37 Departure - Departure Time of Disposition: 13:57 Disposition: Home, Self-Care 01 Condition: Good Clinical Impression: Abscess - Discharge Information Instructions: Skin Abscess Referrals: Robert Gaona [Primary Care Provider] - Additional Instructions: Warm compresses up to 4 times a day. Return to ER symptoms are worse. See PCP if symptoms are not improving. Clindamycin as prescribed. The following information is given to patients seen in the emergency department who are being discharged to home. This information is to outline your options for follow-up care. We provide all patients seen in our emergency department with a follow-up referral. The need for follow-up, as well as the timing and circumstances, are variable depending upon the specifics of your emergency department visit. If you don't have a primary care physician on staff, we will provide you with a referral. We always advise you to contact your personal physician following an emergency department visit to inform them of the circumstance of the visit and for follow-up with them and/or the need for any referrals to a consulting specialist. The emergency department will also refer you to a specialist when appropriate. This referral assures that you have the opportunity for follow-up care with a specialist. All of these measure are taken in an effort to provide you with optimal care, which includes your follow-up. Under all circumstances we always encourage you to contact your private physician who remains a resource for coordinating your care. When calling for follow-up care, please make the office aware that this follow-up is from your recent emergency room visit. If for any reason you are refused follow-up, please contact the [facility] Emergency Department at and asked to speak to the emergency department charge nurse. Sepsis Event Note - Evaluation Sepsis Screening Result: No Definite Risk - Focused Exam Vital Signs: Vital Signs Temp Pulse Resp BP Pulse Ox 06/12/19 13:37 35.8 C 73 16 107/74 97 Date Exam was Performed: 06/12/19 Time Exam was Performed: 13:53
[2019-06-12 13:59] VITALS: BP 107/74; PULSE 73
== END 2019-06-17 14:20 | disposition home or self-care (01) ==
LOC: MW.ED 13:29
DX: L02.414 Cutaneous abscess of left upper limb (principal); Z79.899 Other long term (current) drug therapy
CPT/HCPCS: 99282